=== PATIENT | male | born 1990 | race American Indian/Alaskan Native ===

== ENCOUNTER 2016-05-07 09:22 | Emergency (ER) | payer MEDICAID, OTHER ==
--- NOTE | 2016-05-07 09:28 | EDM.PDOC ---
ED HPI Trauma - General Chief Complaint: Upper Extremity Injury/Pain Stated Complaint: RT ARM PAIN Time Seen by Provider: 05/07/16 09:27 Source: Reports: Patient, Old records, RN, RN notes reviewed History Limitations: Reports: No limitations - History of Present Illness INITIAL COMMENTS - FREE TEXT/NARRATIVE: Arrives by POV with c/o "a painful and hard blood vein" from the right radial wrist to the mid-forearm. Pt denies injury, injection, IV access, lab draw, or any other known causes. Denies past history of blood clots. Denies cough, shortness of breath, or chest pain. Pt just noticed that the area was tender, then found the hard vein this morning. Occurred When: this morning Occurred Where: home Method of Injury: unknown Severity: mild Pain/Injury Location: Reports: upper extremity, right Associated Symptoms: Reports: no other symptoms Allergies/ADRs: Allergies No Known Allergies Allergy (Verified 02/19/16 16:48) Home Medications: Ambulatory Orders Gabapentin [Neurontin] 600 mg PO TID 02/19/16 [Confirmed 05/07/16] Lisinopril 10 mg PO DAILY 02/19/16 [Confirmed 05/07/16] Zolpidem [Ambien] 10 mg PO BEDTIME 02/19/16 [Confirmed 05/07/16] risperiDONE [RisperiDAL] 2 mg PO DAILY 05/07/16 [Confirmed 05/07/16] Past Medical History - Past Health History Medical/Surgical History: Denies Medical/Surgical History HEENT History: Reports: None Cardiovascular History: Reports: Hypertension Respiratory History: Reports: None Gastrointestinal History: Reports: None Genitourinary History: Reports: None Musculoskeletal History: Reports: None Neurological History: Reports: None Psychiatric History: Reports: Addiction, Anxiety, Depression, Emotional problems , Hallucinations, Psychosis, Suicide attempt, Suicidal ideation Endocrine/Metabolic History: Reports: None Hematologic History: Reports: None Immunologic History: Reports: None Oncologic (Cancer) History: Reports: None Dermatologic History: Reports: None - Infectious Disease History Infectious Disease History: Reports: Chicken pox, Measles, Mumps - Past Surgical History Head Surgeries/Procedures: Reports: None Social & Family History - Family History Family Medical History: Noncontributory - Tobacco Use Smoking Status *Q: Never Smoker Years of Tobacco use: 5 Second Hand Smoke Exposure: No - Caffeine Use Caffeine Use: Reports: Coffee - Alcohol Use Days Per Week of Alcohol Use: 0 - Recreational Drug Use Recreational Drug Use: Yes Drug Use in Last 12 Months: Yes Recreational Drug Type: Reports: Ecstasy, LSD (Acid), Methamphetamine Recreational Drug Use Frequency: Not Used In Over 2 Months - Living Situation & Occupation Occupation: employed Review of Systems - Review of Systems Review Of Systems: ROS reveals no pertinent complaints other than HPI. Trauma Exam - Physical Exam Exam: See Below Exam Limited By: No limitations General Appearance: Reports: alert, WD/WN, no apparent distress Head: Reports: atraumatic, normocephalic Neck: Reports: normal inspection Respiratory Exam: Reports: no respiratory distress, lungs clear, normal breath sounds Cardiovascular: Reports: normal peripheral pulses, regular rate, rhythm, other ( Rt radial wrist with tender, firm/hard palpable vein from the wrist to mid- forearm, no visible swelling, erythema, needle kelley, or wounds; skin intact) GI/Abdominal: Reports: normal bowel sounds, soft, non tender Back: Reports: normal inspection Extremities: Reports: normal range of motion, no pedal edema 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, no motor/sensory deficits, alert , normal mood/affect, oriented x 3 Skin: Reports: Normal color, Warm/dry Course - Vital Signs Last Recorded V/S: Last Vital Signs Temp 36.2 C 05/07/16 09:30 Pulse 72 05/07/16 09:30 Resp 16 05/07/16 09:30 BP 135/96 H 05/07/16 09:30 Pulse Ox 99 05/07/16 09:30 - Orders/Labs/Meds Labs: Laboratory Tests 05/07/16 05/07/16 05/07/16 Range/Units 09:59 09:59 09:59 WBC 5.4 (5.0-10.0) 10^3/uL RBC 4.91 (4.6-6.2) 10^6/uL Hgb 14.5 (14.0-18.0) g/dL Hct 42.4 (40.0-54.0) % MCV 86.4 (80-100) fL MCH 29.5 (27.0-34.0) pg MCHC 34.2 (33.0-35.0) g/dL Plt Count 270 (150-450) 10^3/uL Neut % (Auto) 65.9 (42.2-75.2) % Lymph % (Auto) 22.9 (20.5-50.1) % [place] % (Auto) 8.9 H (2-8) % Eos % (Auto) 1.9 (1.0-3.0) % Baso % (Auto) 0.4 (0.0-1.0) % D-Dimer, Quantitative 901 H (0-400) ng/mL Sodium 139 (135-145) mmol/L Potassium 3.9 (3.6-5.0) mmol/L Chloride 103 (101-111) mmol/L Carbon Dioxide 30.0 (21.0-31.0) mmol/L Anion Gap 9.9 BUN 10 (7-18) mg/dL Creatinine 0.8 (0.6-1.3) mg/dL Est Cr Clr Drug Dosing 158.14 mL/min Estimated GFR (MDRD) > 60 BUN/Creatinine Ratio 12.50 Glucose 89 (74-105) mg/dL Calcium 8.6 (8.4-10.2) mg/dl Total Bilirubin 0.3 (0.2-1.0) mg/dL AST 29 (10-42) IU/L ALT 23 (10-60) IU/L Alkaline Phosphatase 58 (42-121) IU/L Total Protein 7.6 (6.7-8.2) g/dl Albumin 4.0 (3.2-5.5) g/dl Globulin 3.6 Albumin/Globulin Ratio 1.11 - Radiology Interpretation Free Text/Narrative:: Venous duplex US Rt upper extremity: superficial thrombosis of the distal cephalic vein from right radial wrist to mid-forearm with deep vein thrombosis, see Rad. report. CT Results Date: 05/07/16 Departure - Departure Time of Disposition: 11:22 Disposition: Home, Self-Care 01 Condition: good Clinical Impression: Superficial venous thrombosis of right upper extremity Instructions: Phlebitis Forms: ED Department Discharge Additional Instructions: Rx: Enteric Coated Aspirin 325mg: One tablet every days. Warm compress to right forearm several times a day. Follow up clinic with your primary doctor this week for recheck and further evaluation.
[2016-05-07 09:47] VITALS: BP 135/96
[2016-05-07 10:31] LABS: CHLORIDE,CL 103 mmol/L (101-111); SODIUM,NA 139 mmol/L (135-145)
== END 2016-05-07 12:25 | disposition home or self-care (01) ==
LOC: DL.ED 09:22
DX: I82.611 Acute embolism and thrombosis of superficial veins of right upper extremity (principal); I10 Essential (primary) hypertension; F41.9 Anxiety disorder, unspecified; F32.9 Major depressive disorder, single episode, unspecified
CPT/HCPCS: 36415; 80053; 85025; 85379; 99284